=== PATIENT | male | born 1935 | race Caucasian/White ===

== ENCOUNTER 2020-09-28 12:32 | Inpatient (IN) ==
[~2020-09-28 12:32] MED LIST: OPTIRAY 350 500ml IV ONE
--- NOTE | 2020-09-28 12:48 | CT Scan Report ---
CT head/brain wo con CLINICAL HISTORY: Stroke Like Symptoms COMPARISON STUDY: No previous studies for comparison. TECHNIQUE: Axial CT of the brain is performed from the vertex to the skull base. IV contrast was not administered for this examination. A dose lowering technique was utilized adhering to the principles of ALARA. CT DOSE: FINDINGS: No intra or extra-axial mass lesions are visualized. There is no CT evidence of acute cortical infarc tion. There is no evidence of midline shift. There is no acute hemorrhage. No calvarial fractures ar e visualized. There are patchy white matter hypodensities likely on a small vessel basis. There is no evidence of pathologic ventricular dilatation. There is no evidence of acute sinusitis. There is prominent pineal calcification. IMPRESSION: No acute intracranial findings ACT 112: Negative or not required by law. Electronically signed by: Tres Vasquez M.D. 09/28/2020 12:47 PM
--- NOTE | 2020-09-28 12:49 | XRay Report ---
XR chest 1V portable CLINICAL HISTORY: Stroke Like Symptoms COMPARISON STUDY: No previous studies for comparison. FINDINGS: The heart is normal in size. There is no failure. There is no focal pulmonary consolidation . There are no pleural effusions. There are biapical calcifications, likely chronic. There are multip le radiopacities projected over the left arm.[ IMPRESSION: No active disease in the chest. ACT 112: Negative or not required by law. Electronically signed by: Tres Vasquez M.D. 09/28/2020 12:48 PM
--- NOTE | 2020-09-28 12:56 | CT Scan Report ---
CT angio neck with con CLINICAL HISTORY: Stroke Like Symptoms COMPARISON STUDY: No previous studies for comparison. TECHNIQUE: CT angiography was performed from the aortic arch to the skull base. MIP imaging was perfo rmed. The patient was scanned in a dynamic helical fashion during intravenous administration of 114 c c of Optiray. A dose lowering technique was utilized adhering to the principles of ALARA. CT DOSE: Technique: CT angiogram of the carotid and vertebral arteries was obtained using intravenous contrast and 3-D reconstruction. NASCET criteria was utilized. Findings: There are subcentimeter thyroid nodules. No further workup is recommended. The right carotid revealed no evidence of aneurysm and no evidence of dissection. There is no evidenc e of hemodynamic significant stenosis. The left carotid revealed no evidence of hemodynamic significant stenosis. There is no evidence of an eurysm. There is no evidence of dissection. There is no evidence of hemodynamically significant vertebral stenosis. There is no evidence of verte bral dissection. IMPRESSION: No evidence of hemodynamically significant carotid or vertebral artery stenosis. No evidence of disse ction. ACT 112: Negative or not required by law. Electronically signed by: Tres Vasquez M.D. 09/28/2020 12:54 PM
--- NOTE | 2020-09-28 12:58 | CT Scan Report ---
CT angio head w con CLINICAL HISTORY: Stroke Like Symptoms TECHNIQUE: CT angiography of the head was performed in a dynamic helical fashion during intravenous a dministration of 114 cc of Optiray. MIP imaging was performed. A dose lowering technique was utilized adhering to the principles of ALARA. CT DOSE: 1231.43 mGy.cm COMPARISON STUDY: No previous studies for comparison. FINDINGS: There are no lesion suspicious for aneurysm. There are no major intracranial branch occlusi ons. The dural venous sinuses appear patent. IMPRESSION: 1. Unremarkable CT angiography the brain. ACT 112: Negative or not required by law. Electronically signed by: Tres Vasquez M.D. 09/28/2020 12:56 PM
[2020-09-28 13:01] LABS: Hematocrit (blood only) 35.4 % (42-52); Hemoglobin 11.8 g/dL (14.0-18.0); Mean Corpuscular Hemoglobin 33.8 pg (25-34); Mean Corpuscular Hgb Conc 33.3 g/dL (32-36); Mean Corpuscular Volume 101.4 fL (80-100); Mean Platelet Volume 9.9 fL (7.4-10.4); Platelet Count 115 K/uL (130-400); RDW Coefficient of Variation 14.5 % (11.5-14.5); RDW Standard Deviation 53.8 fL (36.4-46.3); Red Blood Count 3.49 M/uL (4.7-6.1); White Blood Count 5.21 K/uL (4.8-10.8)
[2020-09-28 13:13] LABS: INR 1.1 (0.9-1.1); Partial Thromboplastin Time 25.2 Seconds (21.0-31.0); Prothrombin Time 11.4 Seconds (9.0-12.0)
[2020-09-28 13:16] LABS: Alanine Aminotransferase 20 U/L (12-78); Albumin Level 3.2 gm/dl (3.4-5.0); Aspartate Aminotransferase 26 U/L (15-37); BUN Creatinine Ratio 20.1 (10-20); Blood Urea Nitrogen 13 mg/dl (7-18); Calcium 8.6 mg/dl (8.5-10.1); Carbon Dioxide 28 mmol/L (21-32); Chloride 99 mmol/L (98-107); Creatinine Clr Calc Pharmacy 65.9 ml/min; Est GFR (African American) 102.2; Est GFR (Non-African American) 88.2; Glucose 100 mg/dl (70-99); Potassium 4.4 mmol/L (3.5-5.1); Sodium 132 mmol/L (136-145)
[2020-09-28 13:21] LABS: Albumin Globulin Ratio 0.9 (0.9-2); Alkaline Phosphatase 70 U/L (45-117); Bilirubin,Total 0.5 mg/dl (0.2-1); Globulin 3.6 gm/dl (2.5-4.0); Total Protein 6.8 gm/dl (6.4-8.2); Troponin I < 0.015 ng/ml (0-0.045)
[2020-09-28] MEDS ORDERED: ASPIRIN CHEW 324 MG PO STA (13:21)
[2020-09-28] MEDS ORDERED: ATORVASTATIN 10 MG TAB PO ONE (13:21)
--- NOTE | 2020-09-28 13:31 | Emergency Department Note ---
History of Present Illness General Chief complaint: Stroke Alert Stated complaint: cva symptoms Source: patient Mode of arrival: ambulatory Limitations: no limitations History of Present Illness Provider complaint: TIA Resents to the ED by ambulance. The patient was reportedly at [employer] around 11 AM when he suddenly developed right-sided facial droop and right arm flaccidity. He also seemed to be generally weak but was able to stand. This is according to the nephew. The patient had improvement of symptoms while still at the [employer] where these things occurred. EMS found the patient to have some difficulty with word finding but this improved during transport. The patient denies any specific complaints at this time. He did have a fall on Tuesday and may have bumped his head. He states that he did not have a loss of consciousness. No additional complaints at this time. The patient was a stroke alert. Allergies Allergy/AdvReac Type Severity Reaction Status Date / Time No Known Allergies Allergy Verified 09/28/20 12:45 Past Med/Surg History Medical History (Updated 09/28/20 @ 13:30 by Ryley Starr DO) Glaucoma Hypertension Hypothyroid Review of Systems A total of 10 systems reviewed and were otherwise negative Physical Exam Vital Signs Vital Signs - 24 hr 09/28/20 12:46 09/28/20 12:49 09/28/20 12:50 Pulse Rate 88 85 97 H Pulse Rate from SpO2 Sensor 86 86 92 H Respiratory Rate 17 18 22 Blood Pressure 172/84 H Blood Pressure Mean 113 Pulse Oximetry 95 98 94 CONSTITUTIONAL/VITAL SIGNS: Reviewed / noted above. GENERAL: Non-toxic in appearance. INTEGUMENTARY: Warm, dry, and [place]. HEAD: Normocephalic. EYES: without scleral icterus or trauma. ENT/OROPHARYNX: clear and moist. LYMPHADENOPATHY/NECK: Is supple without lymphadenopathy or meningismus. RESPIRATORY: Lungs clear and equal. CARDIOVASCULAR: Regular rate and rhythm. GI/ABDOMEN: Soft and nontender. No organomegaly or pulsatile mass. No rebound or guarding. Normal bowel sounds. EXTREMITIES: Warm and well perfused. BACK: No CVA tenderness. NEUROLOGICAL: Intact without focal deficits. Minimal facial droop but this appears normal to the son. PSYCHIATRIC: normal affect. MUSCULOSKELETAL: Normally developed with good muscle tone. TRIAGE NURSING DOCUMENTATION REVIEWED. Course Administered Medications Discontinued Medications Ioversol (Optiray 350 500ml) 114 ml IV ONCE ONE Stop: 09/28/20 12:29 Last Admin: 09/28/20 12:29 Dose: 114 ml Documented by: [id number] Critical Care Time Critical Care Time: Yes Total Critical Care Time: 30 I have personally spent 30 minutes of critical care time in the direct management of this patient. This includes bedside care, interpretation of diagnostic studies, and testing, discussion with consultants, patient, and family members, and other required patient management activities. This 30 minutes is in excess of all separately billable procedures. Medical Decision Making Differential Diagnosis Differential includes acute coronary syndrome, myocardial infarction, CVA, TIA, anemia, infection, pneumonia, UTI, pyelonephritis, poor nutrition, dehydration, electrolyte disturbance,hypoglycemia. Medical Records Attestation: I reviewed the patient's medical records. Home Medications Current Medication List: was personally reviewed by me Laboratory Data Attestation: I reviewed the patient's lab results. Result diagrams: 09/28/20 12:43 09/28/20 12:43 Lab Results 09/28/20 09/28/20 09/28/20 Range/Units 12:43 12:43 12:43 WBC 5.21 (4.8-10.8) K/uL RBC 3.49 L (4.7-6.1) M/uL Hgb 11.8 L (14.0-18.0) g/dL Hct 35.4 L (42-52) % MCV 101.4 H (80-100) fL MCH 33.8 (25-34) pg MCHC 33.3 (32-36) g/dL RDW Std Deviation 53.8 H (36.4-46.3) fL RDW Coeff of [place] 14.5 (11.5-14.5) % Plt Count 115 L (130-400) K/uL MPV 9.9 (7.4-10.4) fL PT 11.4 (9.0-12.0) Seconds INR 1.1 (0.9-1.1) APTT 25.2 (21.0-31.0) Seconds PTT Ratio 1.0 Sodium 132 L (136-145) mmol/L Potassium 4.4 (3.5-5.1) mmol/L Chloride 99 (98-107) mmol/L Carbon Dioxide 28 (21-32) mmol/L Anion Gap 5.0 (3-11) BUN 13 (7-18) mg/dl Creatinine 0.66 (0.6-1.4) mg/dl Est Cr Clr Drug Dosing 65.9 ml/min Est GFR ( Amer) 102.2 Est GFR (Non-Af Amer) 88.2 BUN/Creatinine Ratio 20.1 H (10-20) Glucose 100 H (70-99) mg/dl Calcium 8.6 (8.5-10.1) mg/dl Magnesium 2.0 (1.8-2.4) mg/dl Total Bilirubin 0.5 (0.2-1) mg/dl AST 26 (15-37) U/L ALT 20 (12-78) U/L Alkaline Phosphatase 70 (45-117) U/L Troponin I < 0.015 (0-0.045) ng/ml Total Protein 6.8 (6.4-8.2) gm/dl Albumin 3.2 L (3.4-5.0) gm/dl Globulin 3.6 (2.5-4.0) gm/dl Albumin/Globulin Ratio 0.9 (0.9-2) Imaging Data Radiologist's Impression: Chest X-Ray 09/28/20 12:23 XR chest 1V portable CLINICAL HISTORY: Stroke Like Symptoms COMPARISON STUDY: No previous studies for comparison. FINDINGS: The heart is normal in size. There is no failure. There is no focal pulmonary consolidation. There are no pleural effusions. There are biapical calcifications, likely chronic. There are multiple radiopacities projected over the left arm.[ IMPRESSION: No active disease in the chest. ACT 112: Negative or not required by law. Electronically signed by: Tres Vasquez M.D. 09/28/2020 12:[address] 09/28/20 12:23 CT head/brain wo con CLINICAL HISTORY: Stroke Like Symptoms COMPARISON STUDY: No previous studies for comparison. TECHNIQUE: Axial CT of the brain is performed from the vertex to the skull base. IV contrast was not administered for this examination. A dose lowering technique was utilized adhering to the principles of ALARA. CT DOSE: FINDINGS: No intra or extra-axial mass lesions are visualized. There is no CT evidence of acute cortical infarction. There is no evidence of midline shift. There is no acute hemorrhage. No calvarial fractures are visualized. There are patchy white matter hypodensities likely on a small vessel basis. There is no evidence of pathologic ventricular dilatation. There is no evidence of acute sinusitis. There is prominent pineal calcification. IMPRESSION: No acute intracranial findings ACT 112: Negative or not required by law. Electronically signed by: Tres Vasquez M.D. 09/28/2020 12:47 PM Head CTA 09/28/20 12:23 CT angio head w con CLINICAL HISTORY: Stroke Like Symptoms TECHNIQUE: CT angiography of the head was performed in a dynamic helical fashion during intravenous administration of 114 cc of Optiray. MIP imaging was performed. A dose lowering technique was utilized adhering to the principles of ALARA. CT DOSE: 1231.43 mGy.cm COMPARISON STUDY: No previous studies for comparison. FINDINGS: There are no lesion suspicious for aneurysm. There are no major intracranial branch occlusions. The dural venous sinuses appear patent. IMPRESSION: 1. Unremarkable CT angiography the brain. ACT 112: Negative or not required by law. Electronically signed by: Tres Vasquez M.D. 09/28/2020 12:56 PM Neck CTA 09/28/20 12:23 CT angio neck with con CLINICAL HISTORY: Stroke Like Symptoms COMPARISON STUDY: No previous studies for comparison. TECHNIQUE: CT angiography was performed from the aortic arch to the skull base. MIP imaging was performed. The patient was scanned in a dynamic helical fashion during intravenous administration of 114 cc of Optiray. A dose lowering technique was utilized adhering to the principles of ALARA. CT DOSE: Technique: CT angiogram of the carotid and vertebral arteries was obtained using intravenous contrast and 3-D reconstruction. NASCET criteria was utilized. Findings: There are subcentimeter thyroid nodules. No further workup is recommended. The right carotid revealed no evidence of aneurysm and no evidence of dissection. There is no evidence of hemodynamic significant stenosis. The left carotid revealed no evidence of hemodynamic significant stenosis. There is no evidence of aneurysm. There is no evidence of dissection. There is no evidence of hemodynamically significant vertebral stenosis. There is no evidence of vertebral dissection. IMPRESSION: No evidence of hemodynamically significant carotid or vertebral artery stenosis. No evidence of dissection. ACT 112: Negative or not required by law. Electronically signed by: Tres Vasquez M.D. 09/28/2020 12:54 PM ECG Data Attestation: I personally reviewed and interpreted this ECG as follows: Indication: + weakness Rate (beats per minute): 83 Rhythm: + normal sinus ECG Intervals/blocks: + Normal QT-c ECG ST segments: no ST elevation ECG Findings: no PVCs MDM Narrative Patient presents as a stroke alert. Details above. Nephew reported right-sided weakness including a right arm that was flaccid and right facial droop. Symptoms resolved after about 5 minutes. They started at 11 AM. By the time he arrived here by EMS, symptoms have completely resolved. Stroke alert was called prior to the patient's arrival. He was evaluated by Dr. Rosa from [facility]. The patient was felt to have a TIA. He will require further inpatient evaluation and imaging. The patient was given aspirin p.o. He was given atorvastatin p.o. He was given some IV fluids. The patient will be seen by the hospitalist for further evaluation and care. Impression & Plan Brain TIA Discharge Plan Visit Data Chief Complaint: Stroke Alert Stated Complaint: cva symptoms ED Provider: Ryley Starr Discharge Problem: Brain TIA Patient Disposition: Being Evaluated by Hospitalist Forms Stand Alone Forms: [facility] Referrals Referrals: PCP,NO [Primary Care Provider] -
[2020-09-28 13:32] LABS: Appearance Urine Clear (Clear); Bilirubin Urine Negative (Negative); Blood Urine Negative (Negative); Color Urine Yellow; Glucose Urine UA Negative (Negative); Ketones Urine Negative (Negative); Leukocyte Esterase Urine Negative (Negative); Nitrite Urine Negative (Negative); Protein Urine Negative (Negative); Specific Gravity Urine 1.022 (1.000-1.030); Urobilinogen Urine Negative (Negative); pH Urine 8.5 (4.5-7.5)
[2020-09-28] MEDS: SODIUM CHLORIDE 0.9% 1000ML 1,000 ML IV SCH (13:36)
[2020-09-28 13:37] LABS: Basophils # (auto) 0.01 K/uL (0-0.2); Basophils % (auto) 0.2 %; Eosinophils # (auto) 0.11 K/uL (0-0.5); Eosinophils % (auto) 2.1 %; Immature Granulocytes # (auto) 0.06 K/uL (0.00-0.02); Immature Granulocytes % (auto) 1.2 %; Lymphocytes # (auto) 0.78 K/uL (1.2-3.4); Monocytes # (auto) 1.45 K/uL (0.11-0.59); Monocytes % (auto) 27.8 %; Neutrophils % (auto) 53.7 %
[2020-09-28 14:36] LABS: Influenza A virus by PCR Negative (Neg); Influenza B virus by PCR Negative (Neg); RSV by PCR Negative (Neg); SARS CoV2 RNA(COVID-19) InHosp NEGATIVE (Negative)
--- NOTE | 2020-09-28 15:23 | History & Physical Report ---
Date of Service September 28, 2020 Assessment & Plan (1) Brain TIA: TIA - symptoms resolved - admit to telemetry- stroke precautions - CT of the head and neck unremarkable. - Will check an MRI of the brain - Check ECHO- NSR on EKG with normal HR on admission to the ED, but he was noted to be tachycardic on exam - Consult neurology - Check lipid panel, TSH in AM - speech eval- diet minced and moist until evaluated as the patient reports some issues with chewing and swallowing - PT/OT eval - ASA 81mg daily - start atorvastatin 10mg daily (2) History of fall: Hx of 2 falls in the past week - PT/OT eval - check orthostatic BPs (3) Hypertension: Patient reports a hx of hypotension. Hypertensive on admission. Currently 204/94. - Monitor- will order hydralazine 10mg for systolic >160 and diastolic >100. - Check BMP in AM (4) Hypothyroid: - check TSH in AM - continue levothyroxine 25mcg daily (5) Iron deficiency anemia: H&H of 11.3 and 35.4 on admission. - thrombocytopenia- 115 on admission - check CBC in AM - continue ferrous sulfate (6) Glaucoma: Stable - continue timolol and travaprost on admission (7) Hyponatremia: Sodium 132 on admission - continue gentle hydration NSS IVF 50mls/hr - recheck in AM (8) DVT prophylaxis: - SCDs - Lovenox 40mg daily Admission and Anticipated Discharge Date Admission Date: 09/28/20 History of Present Illness Chief Complaint: right sided weakness Primary Care Provider: NO PCP 84 year old male presents with his nephew today with c/o dizziness, right sided weakness, and facial droop which occurred earlier this morning while in [place]. The patient is visiting the area with his nephew from [place], [place]. Symptoms have resolved since admission to the ED. He reports a history of a "mini stroke" a few years ago. He currently takes 81mg of ASA daily. Patient also reports a fall 2 days ago in which he tripped on a step and hit his head on a table. He had a fall last week as well when bending over to pull some weeds. Patient reports some dizziness prior to this fall. He reports a hx of hypotension, but was noted to be hypertensive at 196/92 while in the ED today. CT angiography of the head was unremarkable today. Neck CTA showed no evidence of hemodynamically significant carotid or vertebral artery stenosis. He was seen by [facility] telemedicine while in the ED. Thought to have had a TIA. Patient lives alone in [place]. His nephew lives nearby. He denies the use of any ambulatory aides. He does report a hx of difficulty with chewing related to his dentures. Other past medical history includes a history of iron deficiency anemia, hypothyroidism, and glaucoma. Allergies Allergy/AdvReac Type Severity Reaction Status Date / Time No Known Allergies Allergy Verified 09/28/20 14:06 Home Medications Medication Instructions Recorded Confirmed Type aspirin [Aspir-81] 81 mg PO UD 09/28/20 09/28/20 History brimonidine-timolol [Combigan] 1 drp OPHTHALMIC (EYE) BID 09/28/20 09/28/20 History ferrous sulfate [iron] 325 mg PO QAM 09/28/20 09/28/20 History levothyroxine 25 mcg PO DAILYBB 09/28/20 09/28/20 History multivitamin 1 tab PO QAM 09/28/20 09/28/20 History travoprost [Travatan Z] 1 drp OPB HS 09/28/20 09/28/20 History Past Med/Surg History Medical History (Updated 09/28/20 @ 15:41 by TRICE Andino) Glaucoma Hypertension Hypothyroid Social History Smoking Status: Never smoker Feels Safe at Home: Yes Review of Systems Review of Systems: All systems reviewed & are unremarkable except as noted in Subjective Physical Exam Physical Exam: Temp Pulse Resp BP Pulse Ox 36.6 C 80 17 196/92 H 98 09/28/20 12:35 09/28/20 14:40 09/28/20 14:40 09/28/20 13:07 09/28/20 14:40 Patient is afebrile. He is hypertensive at 196/92, but is asymptomatic. Constitutional: average body habitus; no acute distress Eyes: PERRL, conjunctivae normal, anicteric sclerae ENMT: Ears: no hearing impairment Neck: trachea midline Thyroid: normal thyroid Respiratory: normal respiratory effort, lungs clear to auscultation Cardiovascular: Rate/Rhythm: + tachycardic and + irregularly irregular Gastrointestinal (Abdomen): normal bowel sounds, soft, nontender, no hepatosplenomegaly Neurologic: PERRL, EOMI, accommodation nl, no face palsy, no dysarthria CN's II-XI intact bilaterally Psychiatric: A+Ox3, euthymic affect Results & Data Results & Data ([facility]) Vital Signs (Past 12 Hours) Vital Signs Temp Pulse Resp BP Pulse Ox 09/28/20 14:40 80 17 98 09/28/20 14:30 73 16 100 09/28/20 14:20 83 19 99 09/28/20 14:10 81 18 96 09/28/20 13:50 83 16 100 09/28/20 13:40 87 17 99 09/28/20 13:30 79 18 99 09/28/20 13:20 99 09/28/20 13:10 89 20 100 09/28/20 13:07 86 18 196/92 H 99 09/28/20 13:00 86 20 100 09/28/20 12:50 97 H 22 94 09/28/20 12:49 85 18 98 09/28/20 12:46 88 17 172/84 H 95 09/28/20 12:35 36.6 C Code Status & VTE Plan Code Status Full code VTE Prophylaxis Plan VTE Prophylaxis will be ordered: Yes Supervising Physician Co-Signing Physician Notes Patient was seen and examined independently I discussed the case with Inna CARNES I reviewed pertinent past medical social family history and also the plan of care and agree with the plan of care. Pt was seen in the ER and had complete resolution of his symptoms, accompanied by his nephew. Initial evaluation is negative for stroke, pending MRI Physical exam is intact without dysmetria, significant murmurs but may have some history of swallowing issues and did have recent falls will eval swallowing and also have PT/OT not only eval for stroke but for gait stability Any exceptions will be noted below PG Care Time/CCT Total # of Minutes Spent Total Time Spent with Patient: Total time spent is greater than 50% in coordination of care (as documented) at patient's floor/unit and/or counseling patient: Coding Level of Care Code 73074 Initial Inpt Care Lvl 2 Medical Decision Making Moderate Complexity Diagnoses Brain TIA G45.9 History of fall Z91.81 Hypertension I10 Hypothyroid E03.9 Iron deficiency anemia D50.9 Glaucoma H40.9 Hyponatremia E87.1 DVT prophylaxis Z29.9
[2020-09-28] MEDS ORDERED: hydrALAZINE 10 MG TAB PO PRN (16:28)
[2020-09-28] MEDS ORDERED: PHARMACIST DISCHARGE MED REC CONSULT PRN (16:28)
[2020-09-28] MEDS ORDERED: POLYETHYLENE (MIRALAX) 17 GM PACK PO PRN (16:28)
[2020-09-28] MEDS ORDERED: TRAVOPROST Z 0.004% OPH SOLN 2.5 ML BTL OPB SCH (21:00)
[2020-09-29] MEDS: COMBIGAN: ORDER AWAITING ACTION SCH ×3 (00:34→15:20)
[2020-09-29] MEDS ORDERED: GADOBUTROL 65ML VIAL IV ONE (01:16)
[2020-09-29] MEDS ORDERED: LEVOTHYROXINE SODIUM 25 MCG TABLET PO SCH (06:30)
[2020-09-29] MEDS: ENOXAPARIN INJ 40 MG/0.4 ML SYR SQ SCH ×2 (08:05→08:10)
[2020-09-29 08:09] LABS: Basophils # (auto) 0.02 K/uL (0-0.2); Basophils % (auto) 0.4 %; Eosinophils # (auto) 0.09 K/uL (0-0.5); Eosinophils % (auto) 1.8 %; Hematocrit (blood only) 38.5 % (42-52); Hemoglobin 12.5 g/dL (14.0-18.0); Immature Granulocytes # (auto) 0.05 K/uL (0.00-0.02); Lymphocytes # (auto) 1.18 K/uL (1.2-3.4); Lymphocytes % (auto) 23.6 %; Mean Corpuscular Hemoglobin 32.9 pg (25-34); Mean Corpuscular Hgb Conc 32.5 g/dL (32-36); Mean Corpuscular Volume 101.3 fL (80-100); Mean Platelet Volume 9.7 fL (7.4-10.4); Monocytes # (auto) 1.33 K/uL (0.11-0.59); Monocytes % (auto) 26.7 %; Neutrophils # (auto) 2.32 K/uL (1.4-6.5); Neutrophils % (auto) 46.5 %; Platelet Count 116 K/uL (130-400); RDW Coefficient of Variation 14.5 % (11.5-14.5); RDW Standard Deviation 53.7 fL (36.4-46.3); White Blood Count 4.99 K/uL (4.8-10.8)
[2020-09-29] MEDS: SODIUM CHLORIDE 0.9% 1000ML 1,000 ML IV SCH (08:10)
[2020-09-29 08:42] LABS: Calcium 8.8 mg/dl (8.5-10.1); Creatinine Clr Calc Pharmacy 62.2 ml/min; Est GFR (African American) 100.9; Est GFR (Non-African American) 87.1; Potassium 3.7 mmol/L (3.5-5.1)
[2020-09-29 08:52] LABS: Thyroid Stimulating Hormone 3.65 uIu/ml (0.300-4.500)
--- NOTE | 2020-09-29 08:58 | Magnetic Resonance Report ---
MRI OF THE BRAIN WITHOUT AND WITH IV CONTRAST CLINICAL HISTORY: Transient ischemic attack COMPARISON STUDY: Noncontrast head CT dated 09/28/2020 TECHNIQUE: MRI of the brain was performed from the vertex to the skull base utilizing various T1 and T2 weighted sequences. Following the IV administration of 6 mL of Gadavist contrast, additional enhan paul images were obtained. FINDINGS: Sagittal T1, axial diffusion, proton density and T2 weighted axial, coronal FLAIR, and pre and post a xial T1-weighted images were acquired. These were supplemented with post gadolinium coronal T1 weight ed images. No intra or extra-axial mass lesions are visualized. Axial diffusion-weighted images reveal no evidence of acute or subacute infarction. There is no evidence of ventricular dilatation. Proton density T2-weighted and FLAIR images reveal scattered foci of increased T2 signal within the w pallavi matter, likely on a small vessel basis. There are no abnormal flow voids. There is no evidence of pathologic enhancement. A focus of enhancement within the right cerebellar he misphere as visualized on coronal images #19 and 20, is likely either artifactual or secondary to a D VA. IMPRESSION: 1. No acute intracranial findings 2. No evidence of intracranial mass 3. No evidence of acute or subacute infarction 4. Scattered foci of increased T2 signal within the white matter, likely on a small vessel basis. ACT 112: Negative or not required by law. Electronically signed by: Tres Vasquez M.D. 09/29/2020 8:57 AM
[2020-09-29] MEDS ORDERED: FERROUS SULFATE 325 MG TAB PO SCH (09:00)
[2020-09-29] MEDS ORDERED: MULTIVITAMIN TAB PO SCH (09:00)
[2020-09-29] MEDS ORDERED: ASPIRIN 81 MG ECTAB PO SCH (09:00)
[2020-09-29] MEDS ORDERED: ATORVASTATIN 10 MG TAB PO SCH (09:00)
[2020-09-29 09:16] LABS: Estimated Average Glucose 100 mg/dl; Hemoglobin A1C 5.1 % (4.5-5.6)
--- NOTE | 2020-09-29 09:38 | Neurology Consultation ---
Date of Consultation September 29, 2020 Assessment & Plan (1) Brain TIA: I agree with the diagnosis of TIA. Symptoms would potentially localized to the left cerebral hemisphere, left MCA territory. CT angiography of the head and neck are unremarkable. Brain MRI was negative for acute infarct. Patient is currently neurologically intact. Hypertension is notable stroke risk factor for this patient. Episode occurred while on daily low-dose aspirin, may continue with this antiplatelet medication. Agree with the addition of low-dose atorvastatin to patient's medication regimen. Follow-up with results of echocardiogram. Consider obtaining 30-day mobile cardiac outpatient telemetry. Patient's blood pressure will need ongoing evaluation and management by his PCP. No further immediate neurological recommendations. Please contact me if I may be of further assistance. History of Present Illness Reason for Consultation: TIA Requesting Physician: TRICE Forte Attending Physician: Shaq Freeman MD History of Present Illness The patient is an 84-year-old male who presented to the emergency department yesterday for further evaluation of sudden onset right facial droop and associated weakness of the right arm that occurred acutely while at [facility] at around 11 AM. He was observed to have some word finding difficulty as well that improved in route to the hospital. Imaging evaluation including CT of the head and CT angiography of the head and neck were unremarkable. Past medical history notable for hypertension. Patient takes daily low-dose aspirin. He reports feeling fine this morning, no symptomatic recurrence. A follow-up brain MRI was negative for acute process. Daily low-dose aspirin has been continued. Atorvastatin has been added to his medication regimen. Patient's blood pressure has been modestly elevated. FH noncontributory given advanced age Allergies Allergy/AdvReac Type Severity Reaction Status Date / Time No Known Allergies Allergy Verified 09/28/20 14:06 Home Medications Medication Instructions Recorded Confirmed Type aspirin [Aspir-81] 81 mg PO UD 09/28/20 09/28/20 History brimonidine-timolol [Combigan] 1 drp OPHTHALMIC (EYE) BID 09/28/20 09/28/20 History ferrous sulfate [iron] 325 mg PO QAM 09/28/20 09/28/20 History levothyroxine 25 mcg PO DAILYBB 09/28/20 09/28/20 History multivitamin 1 tab PO QAM 09/28/20 09/28/20 History travoprost [Travatan Z] 1 drp OPB HS 09/28/20 09/28/20 History Patient History Medical History Glaucoma Hypertension Hypothyroid Social History Smoking Status: Never smoker Hx Alcohol Use: No Hx Substance Use: No Preferred Language: Ecuadorean Communication Ability: Effective Gambling Monitor Required: No Beliefs That Will Affect Care: None Current Living Situation: Alone Other Information That Helps Us Care for You: No Feels Safe at Home: Yes Safety Concerns: Feels Safe At This Time Assistive Devices: Denture - Upper Assistive Devices Comment: READING GLASSES Review of Systems Constitutional: no fever and no chills Eyes: no blind spots Ear, Nose, Mouth, Throat: no hearing loss Respiratory: no cough and no dyspnea Cardiovascular: no chest pain and no palpitations Gastrointestinal: no nausea and no vomiting Genitourinary: no dysuria Musculoskeletal: no myalgia Integumentary: no rash and no lesions Neurologic: as per Subjective / HPI; no syncope, no headache(s) and no memory loss Psychiatric: no depression and no anxiety Hematologic / Lymphatic: no easy bleeding and no easy bruising Exam (Neuro) Constitutional: well developed and well nourished; no acute distress Eyes: normal visual anglin by confrontation, PERRL, normal accommodation and EOM intact bilaterally; no fundoscopic abnormality, no nystagmus and no papilledema Cardiovascular: Vessels: normal carotid upstroke; no carotid bruit Neurologic: Oriented to:: Person, Place and Time Memory: Short Term Intact and Remote Intact Attention: Span Intact and Concentration Intact Language: Naming Objects and Repeating Phrases Speech Fluency: negative Dysarthria Speech Aphasia: negative Aphasia Fund of Knowledge: Current Events, Past History and Vocabulary Cranial Nerves: Normal II (Visual anglin full to confrontation, visual acuity normal), III, IV, (Pupils equal round reactive to light and accommodation, eye movements normal), V (Facial sensation intact), VII (There is no facial droop or weakness), VIII (Hearing intact), IX, X (Palate elevates to midline), XI (Shoulder shrug intact) and XII (Tongue protrudes to midline) Motor Strength: Normal Lower Extremities and Normal Upper Extremities; negative Pronator Drift Motor Tone: Normal Lower Extremities and Normal Upper Extremities Muscle Bulk/Involuntary Movements: No Involuntary Movements; negative Muscle Atrophy Sensation: Light Touch Intact, Pain/Temperature Intact, Vibration Intact and Proprioception Intact Coordination: Normal; negative Limited Balance, Dysdiadochokinesia, Finger-Nose Abnormal and Heel-Campos Abnormal Deep Tendon Reflexes: Rt Triceps: 2+, Lt Triceps: 2+, Rt Biceps: 2+, Lt Biceps: 2+, Rt Brachioradialis: 2+, Lt Brachioradialis: 2+, Rt Patellar: 2+, Lt Patellar: 2+, Rt Ankle: 2+ and Lt Ankle: 2+ Special Tests: negative Babinski Present Gait: Normal Station and Gait Results & Data ([facility]) Vital Signs (Past 12 Hours) Vital Signs Temp Pulse Resp BP Pulse Ox 09/29/20 08:09 36.7 C 88 20 153/79 H 97 09/29/20 03:17 36.4 C L 76 18 144/70 H 98 09/28/20 23:14 36.7 C 97 H 18 148/85 H 96 Laboratory Results WBC 4.99, hemoglobin 12.5, hematocrit 38.5, platelet count 116, sodium 136, potassium 3.7, BUN 12, creatinine 0.68, glucose 91, hemoglobin A1c 5.1, triglycerides 63, cholesterol 144, LDL 63, VLDL 13, HDL 68, TSH 3.650 Diagnostic Findings Imaging is as described in the HPI. I did independently review the brain MRI and agree with the radiologist's interpretation of this test. There is no evidence of acute or subacute stroke. There is chronic small vessel ischemic disease. 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 Electrocardiogram, normal sinus rhythm, 83 bpm, possible left atrial enlargement. Coding Level of Care Code 43848 Initial Inpt Care Lvl 3 Diagnoses Brain TIA G45.9
[2020-09-29] MEDS ORDERED: STROKE PATIENT DISCHARGE STA (12:04)
--- NOTE | 2020-09-29 13:34 | Pharmacy Report ---
Pharmacist Stroke Counseling - Date of Service September 29, 2020 - Scope: Pharmacy has been consulted to provide medication discharge counseling for this patient admitted with transient ischemic attack as per the Pharmacist Discharge Counseling for Stroke Patients Protocol. - Medications on Discharge: Home Medications Medication Instructions Recorded Confirmed Combigan 1 drp OPHTHALMIC (EYE) BID 09/28/20 09/28/20 ferrous sulfate [iron] 325 mg PO QAM 09/28/20 09/28/20 levothyroxine 25 mcg PO DAILYBB 09/28/20 09/28/20 multivitamin 1 tab PO QAM 09/28/20 09/28/20 travoprost [Travatan Z] 1 drp OPB HS 09/28/20 09/28/20 New Rx's Medication Instructions Recorded aspirin 325 mg PO UD #0 tab 09/29/20 atorvastatin 20 mg PO DAILY #30 tab 09/29/20 - Action: The above medications, specifically ones for stroke treatment/prophylaxis, have been reviewed in detail with the patient prior to discharge. This includes indication, common adverse reactions, drug interactions, and medication administration. Medication counseling has been employed using the teach-back method to ensure understanding. - Outcome: The patient demonstrated understanding of the medications. Additional comments: * All of the patient's questions were answered during the counseling session * Referred him to outpatient pharmacist for any further questions regarding new medications Thank you for allowing pharmacy to be involved in the care of this patient. Please call [phone] with any additional questions
--- NOTE | 2020-09-29 16:15 | XCELERA ---
[id number]
--- NOTE | 2020-09-29 17:31 | Electrocardiogram Report ---
Test Reason : Blood Pressure : / mmHG Vent. Rate : 083 BPM Atrial Rate : 083 BPM P-R Int : 176 ms QRS Dur : 086 ms QT Int : 372 ms P-R-T Axes : 077 056 047 degrees QTc Int : 437 ms Poor data quality, interpretation may be adversely affected Normal sinus rhythm Possible Left atrial enlargement Borderline ECG No previous ECGs available Confirmed by Jude Lomeli ([id number]) on 09/29/2020 5:30:38 PM Referred By: REFERRED SELF Confirmed By:Arvin Lomeli
--- NOTE | 2020-09-29 18:58 | Discharge Summary ---
Date of Service September 29, 2020 Principal Diagnosis tia Discharge Exam The patient appeared well Vital signs as documented. Lungs are clear to auscultation and appear unlabored Cardiac exam, Rhythm is regular.. No murmurs, rubs or gallops. Abdominal exam reveals normal bowel sounds, soft non tender, no masses Extremities are nonedematous and both pedal pulses are normal. Neurologic exam is alert and oriented, no focal loss of strength or sensation Skin is without bruises or rashes Psychologically is without concerns for anxiety or depression. Discharge Data Allergies Allergy/AdvReac Type Severity Reaction Status Date / Time No Known Allergies Allergy Verified 09/28/20 14:06 Consultations 09/28/20 13:33 ED Decision to Admit Stat 09/28/20 14:00 ED Decision to Admit Stat 09/28/20 16:28 Consult Neurology Routine 09/29/20 11:44 Consult Health Information Management Routine Ordered Studies 09/28/20 12:23 CT angio head w con Stat CT angio neck with con Stat CT head/brain wo con Stat 09/29/20 00:41 MR brain wo/w con Routine Hospital Course (1) Brain TIA: Patient negative imaging work-up including MRI CTA. Patient will be discharged per recommendations of [facility] on aspirin and a statin (2) History of fall: Descriptions of fall seems to be both of tripping nature. Will recommend close follow-up and considering outpatient physical therapy (3) Hypothyroid: Patient remains on Synthroid 25 mcg (4) Iron deficiency anemia: Patient remain on iron (5) Glaucoma: Home Health Attestation I certify that this patient is under my care and that I, or a physicians teachers' assistant working with me, had a face to-face encounter that meets the home health [id number] encounter requirements with this patient. The encounter with the patient was in whole, or in part, for the following medical condition, which is the primary reason for home health care (list medical condition): I certify that, based on my findings, the following services are medically necessary home health services: My clinical findings support the need for the above services because: Further, I certify that my clinical findings support that this patient is homebound (i.e. absences from home require considerable and taxing effort and are for medical reasons or adventism services or infrequently or of short duration when for other reasons) because: Certification for Home Health Services: Based on the above findings, I certify that this patient is confined to the home and needs intermittent correction care, physical therapy and/or speech therapy or continues to need occupational therapy. The patient is under my care, and I have initiated the establishment of the plan of care. This patient will be followed by a physician who will periodically review the plan of care. Total Time Total Time Spent Total Time Spent (In Minutes): It required greater than 30 minutes to prepare this patient for discharge Discharge Plan Discharge Items Patient Disposition: Home - Self-Care Reason For Visit: TIA Discharge Diagnosis: Transient ischemic attack Activity: Resume your previous activity Non-emergency contact: Primary Care Provider Call non-emergency contact if: you have any medication questions and your symptoms worsen Follow-up/Referrals: PCP,LOWELL [Primary Care Provider] - Diet: Heart Healthy Addtl Attending Provider Instructions: You have been diagnosed with a Transient ischemic attack A transient ischemic attack (TIA) is a stroke that lasts only a few minutes. It happens when the blood supply to part of the brain is briefly blocked. Symptoms of a TIA are like other stroke symptoms, but do not last as long. They happen suddenly, and include. Numbness or weakness, especially on one side of the body. the Stroke specialist has made some recommendations to have additional medications added to your regime please follow up with your family doctor within a week of discharge Pending Studies at Discharge: No Stand-Alone Forms: Medications to Prevent Stroke, My [facility], Smoking Cessation Medications and DC Order Prescriptions: New atorvastatin 20 mg tablet 20 mg PO DAILY Qty: 30 RF: 5 Continued multivitamin Tablet 1 tab PO QAM RF: 0 ferrous sulfate [iron] 325 mg (65 mg iron) Tablet 325 mg PO QAM RF: 0 travoprost [Travatan Z] 0.004 % Drops 1 drp OPB HS RF: 0 levothyroxine 25 mcg Tablet 25 mcg PO DAILYBB RF: 0 Combigan 0.2-0.5 % Drops 1 drp OPHTHALMIC (EYE) BID RF: 0 Changed aspirin 81 mg Tablet,Delayed Release (Dr/Ec) 325 mg PO UD Qty: 0 RF: 0 Discharge Orders: Discharge Order (Routine); Ordered 09/29/20 Ordered By: Shaq Genao/Other Patient Handouts: Anatomy of the Brain, TIA Dc, ED TIA: Transient Ischemic Attack Admission Data Admit Date/Time: 09/28/20 15:34 Attending Provider: Shaq Freeman Admit Provider: Shaq Freeman Primary Care Provider: PCP,NO Other Providers: Brendan Menendez ; Shaq Freeman ; Rosanna Mazariegos Other Interventions: Discharge Summary Assessment (RN) Last Done: 09/29/20 13:02 Coding Level of Care Code D/C Day Management >30 mins Diagnoses Brain TIA G45.9 History of fall Z91.81 Hypothyroid E03.9 Iron deficiency anemia D50.9 Glaucoma H40.9
== END 2020-09-29 15:40 | disposition home or self-care (01) | DRG 69 ==
LOC: ED 12:32 → 2S 15:34